=== PATIENT | female | born 1990 | race Caucasian/White ===

== ENCOUNTER 2021-12-12 08:03 | Emergency (ER) | payer OTHER, SELFPAY ==
[2021-12-12 08:13] VITALS: BP 133/65; PULSE 84; RESP 16; TEMP 37.3; O2SAT 99
--- NOTE | 2021-12-12 08:18 | ED.EAR ---
HPI - Ear Problem General Chief complaint: Ear Stated complaint: ear pain Time Seen by Provider: 12/12/21 08:16 Source: patient and RN notes reviewed Mode of arrival: ambulatory Limitations: no limitations History of Present Illness HPI Narrative: 31-year-old female presents concern for right ear pain. She reports ear pain is bilateral, however its worse on the right. She reports since Wednesday she has had nasal congestion, rhinorrhea, sinus pressure and pain. Reports she is taken Tylenol. She denies any drainage from the ear, hearing changes, fever, body aches, chills, sweats. Complaint: ear pain Related Data Allergies Allergy/AdvReac Type Severity Reaction Status Date / Time erythromycin base Allergy Mild Other Unverified 12/12/21 08:11 Penicillins Allergy Mild Other Unverified 12/12/21 08:11 yellow dye Allergy Unknown Other Unverified 12/12/21 08:11 Review of Systems Review of Systems: CONSTITUTIONAL: Denies malaise, chills, sweats, or fever. EYES: Denies visual changes, redness, or discharge. ENT: Reports rhinorrhea, congestion, sinus pain. Reports ear pain CARDIOVASCULAR: Denies chest pain, palpitations, or edema. RESPIRATORY: Denies cough. Denies dyspnea. GASTROINTESTINAL: Denies abdominal pain, nausea, vomiting, diarrhea SKIN: Denies rash or itching. MUSCULOSKELETAL: Denies myalgia. NEUROLOGIC: Denies headache. All systems reviewed & are unremarkable except as noted in HPI and below PMFSH Comments At time of signature, agree with nursing past medical, surgical, social and family history. There is no relevant family history pertinent to the presenting complaint Exam Narrative: GENERAL: Well-appearing, well-nourished, and in no acute distress. HEAD: Normocephalic EYES: PERRLA, conjunctivae clear ENT: Nares clear, turbinates edematous, clear discharge. Mucous membranes moist. Left TM pearly shelton with dull light reflex, right TM erythematous and bulging; no tragal tenderness. Oropharynx not erythematous without lesions. Tonsils not enlarged and without exudate, no drooling, no hoarseness, no trismus, uvula midline. NECK: Supple. No lymphadenopathy CHEST: Clear to auscultation, breath sounds equal. No wheezing, rhonchi, rales, or stridor. No respiratory distress, speaks in full sentences. HEART: Regular rate and rhythm. No murmur heard. SKIN: Warm, dry, no rash. NEURO: Alert and oriented x3. PSYCH: Normal mood and affect Course Course Emergency Course: Discussed antibiotic options with patient regarding allergies to penicillin and yellow dye. Appropriate antibiotic options either have yellow dye or penicillin based or related. Patient reports she does not know what her reaction to penicillin is, she was a child. She reports she has an intolerance to yellow dye, and usually only reacts when she has a lot of it for a long period of time. Patient is agreeable to doxycycline, which indicates that it may have yellow dye. We will call the pharmacy to discuss if there are other options without yellow dye. Patient is aware of diagnosis, understands and agrees to treatment plan. Anticipatory guidance given. Patient agrees to follow-up as directed and is aware of reasons to seek care at the emergency department. Portions of this record may have been created with voice recognition software Level of Care: Express Care Visit Vital Signs Vital signs: Vital Signs Temperature 99.2 F 12/12/21 08:13 Pulse Rate 84 12/12/21 08:13 Respiratory Rate 16 12/12/21 08:13 Blood Pressure 133/65 12/12/21 08:13 Pulse Oximetry 99 12/12/21 08:13 Temperature 99.2 F 12/12/21 08:13 Pulse Rate 84 12/12/21 08:13 Respiratory Rate 16 12/12/21 08:13 Blood Pressure 133/65 12/12/21 08:13 Pulse Oximetry 99 12/12/21 08:13 Reviewed. Medical Decision Making MDM Narrative Medical decision making narrative: Differential diagnosis considered: Mccrary virus, strep pharyngitis, allergic rhinitis, upper respiratory tract i
== END 2021-12-12 08:37 | disposition home or self-care (01) ==
PROVIDERS: Emergency Provider Nurse Practitioner
DX: H66.001 Acute suppurative otitis media without spontaneous rupture of ear drum, right ear (principal)
CPT/HCPCS: 99213; G0463

== ENCOUNTER 2021-12-16 08:05 | Emergency (ER) | payer OTHER, SELFPAY ==
--- NOTE | 2021-12-16 08:11 | ED.EAR ---
HPI - Ear Problem General Chief complaint: Ear Stated complaint: ear pain Time Seen by Provider: 12/16/21 08:10 Source: patient, RN notes reviewed and old records reviewed Mode of arrival: ambulatory Limitations: no limitations History of Present Illness HPI Narrative: 31-year-old female returns to the [facility] after being evaluated on Wednesday and diagnosed with an ear infection for continued pain and drainage from both her ears. Denies fevers. States that she was taking the antibiotic. Had taken Motrin and Tylenol for pain. Denies chest pain or abdominal pain. No nausea vomiting or diarrhea. MD Complaint: ear pain and ear discharge Location: bilateral Related Data Allergies Allergy/AdvReac Type Severity Reaction Status Date / Time erythromycin base Allergy Mild Other Verified 12/16/21 08:22 Penicillins Allergy Mild Other Verified 12/16/21 08:22 yellow dye Allergy Unknown Other Verified 12/16/21 08:22 Review of Systems Review of Systems: All systems reviewed & are unremarkable except as noted in HPI and below Constitutional: Constitutional: Reports no additional constitutional complaints, Denies chills and Denies fever(s) Eyes: Eyes: Reports no additional eye complaints ENT: Reports as per HPI, Denies change in voice, Denies dental pain, Denies vertigo, Denies dizziness, Reports ear discharge, Denies facial pain, Denies headache(s), Denies mouth pain, Denies neck pain, Denies nose pain and Denies throat swelling Comments: Ear pain Cardiovascular: Cardiovascular: Reports no additional cardiovascular complaints, Denies chest pain and Denies dyspnea Respiratory: Respiratory: Reports no additional respiratory complaints, Denies cough and Denies dyspnea Gastrointestinal: Gastrointestinal: Reports no additional gastrointestinal complaints, Denies abdominal pain, Denies nausea and Denies vomiting Musculoskeletal: Musculoskeletal: Reports no additional musculoskeletal complaints Integumentary/Breasts: Skin/Breast: Reports system reviewed and no additional complaints, except as docu Neurologic: Reports system reviewed and no additional complaints, except as documented, Denies vertigo and Denies dizziness Psychiatric: Psychiatric: Reports no additional psychiatric complaints Allergic/Immunologic: Allergic/Immunologic: Reports no additional allergic/immunologic complaints and Denies throat swelling PMFSH Past Medical History Medical History Patient denies medical problems Surgical History Surgical History (Updated 12/16/21 @ 11:32 by Tasneem English APRN) No pertinent past surgical history Social History Social History (Updated 12/16/21 @ 11:32 by Tasneem English APRN) Living arrangements: with family Gender identity (if verbalized by the patient): Female Comments At the time of my signature, I reviewed and agree with the nursing past medical, surgical, social, and family history. There is no relevant family history pertinent to the patient complaint. Exam Const: General: no acute distress and ill appearing acutely (mild) Nutritional Appearance: well nourished Orientation/consciousness: patient oriented x3 Limitations: no limitations HENMT: Head: normal to inspection Ears: external ears normal, mastoids normal, no periauricular adenopathy, Abnormal EAC present erythema bilateral and EAC tenderness bilateral and TM abnormal dull bilateral, with loss of landmarks bilateral and perforated with purulent discharge on the right and without discharge on the left; not erythematous General nose exam: Normal external nose present, Normal nasal mucous membranes and turbinates present and No nasal discharge present Face and sinus: normal facial exam Mouth: Yes Normal oral and palatal mucosa present Throat: posterior oropharynx normal, tonsils normal and uvula midline Eyes: Conjunctivae: conjunctivae normal Pupils: Equal, round and reactive pupils present Neck: Nec
[2021-12-16 08:13] VITALS: BP 111/68; PULSE 77; RESP 16; TEMP 37.2; O2SAT 99
== END 2021-12-16 08:35 | disposition home or self-care (01) ==
PROVIDERS: Emergency Provider Nurse Practitioner
DX: H72.91 Unspecified perforation of tympanic membrane, right ear (principal); H60.503 Unspecified acute noninfective otitis externa, bilateral
CPT/HCPCS: 99213; G0463

== ENCOUNTER 2022-05-04 18:21 | Emergency (ER) | payer OTHER, SELFPAY ==
[2022-05-04 18:52] VITALS: BP 114/77; PULSE 83; RESP 16; TEMP 36.7; O2SAT 100
--- NOTE | 2022-05-04 19:20 | ED.EAR ---
HPI - Ear Problem General Chief complaint: Ear Stated complaint: ear infection Time Seen by Provider: 05/04/22 19:20 Source: patient and RN notes reviewed Mode of arrival: ambulatory Limitations: no limitations History of Present Illness HPI Narrative: 31-year-old female presents to the [facility] with complaints of left ear pain for 2 days. Has had drainage. States a couple months ago she had a ruptured eardrum and had to see a specialist. Denies fevers. NO treatment [employer] Location: left ear Related Data Allergies Allergy/AdvReac Type Severity Reaction Status Date / Time erythromycin base Allergy Mild Other Verified 12/16/21 08:22 Penicillins Allergy Mild Other Verified 12/16/21 08:22 yellow dye Allergy Unknown Other Verified 12/16/21 08:22 Review of Systems Review of Systems: All systems reviewed & are unremarkable except as noted in HPI and below Constitutional: Constitutional: Reports no additional constitutional complaints, Denies chills and Denies fever(s) Eyes: Eyes: Reports no additional eye complaints ENT: Reports as per HPI (left ear pain with drainage. ) Cardiovascular: Cardiovascular: Reports no additional cardiovascular complaints Respiratory: Respiratory: Reports no additional respiratory complaints Gastrointestinal: Gastrointestinal: Reports no additional gastrointestinal complaints Musculoskeletal: Musculoskeletal: Reports no additional musculoskeletal complaints Integumentary/Breasts: Skin/Breast: Reports system reviewed and no additional complaints, except as docu Neurologic: Reports system reviewed and no additional complaints, except as documented Psychiatric: Psychiatric: Reports no additional psychiatric complaints Allergic/Immunologic: Allergic/Immunologic: Reports no additional allergic/immunologic complaints PMFSH Past Medical History Medical History Patient denies medical problems Surgical History Surgical History No pertinent past surgical history Social History Social History Gender identity (if verbalized by the patient): Female Comments At the time of my signature, I reviewed and agree with the nursing past medical, surgical, social, and family history. There is no relevant family history pertinent to the patient complaint. Exam Const: General: healthy appearing, no acute distress and alert Nutritional Appearance: well nourished Orientation/consciousness: patient oriented x3 Limitations: no limitations HENMT: Head: normal to inspection Ears: external ears normal, TM normal on the right, mastoids normal bilaterally, no periauricular adenopathy, Abnormal EAC present erythema on the left and edema on the left and unable to visualize TM General nose exam: Normal external nose present and Normal nares present Face and sinus: normal facial exam, sinuses nontender and face symmetric Mouth: Yes Normal oral and palatal mucosa present, Yes lip normal and Yes moist mucous membranes Throat: posterior oropharynx normal and uvula midline Other: Unable to visualized the left TM due to swelling. Eyes: General: appearance normal, both eyes and all related structures Pupils: Equal, round and reactive pupils present Neck: Neck: normal visual inspection, no lymphadenopathy and no meningeal signs Chest: Chest palpation & inspection: normal inspection of the chest Resp: Effort & Inspection: normal respiratory effort and no use of accessory muscles Auscultation: clear to auscultation bilaterally, no crackles, no rales, no rhonchi and no wheezes Cardio: Rate: regular rate Rhythm: regular rhythm Back/Spine/Pelvis: Cervical Spine: normal cervical lordosis Thoracic/Lumbar Spine: thoracic and lumbar spine normal to inspection Skin: General skin exam: normal color Rashes: no rashes Wounds: no wounds Neuro: General: patien
== END 2022-05-04 19:34 | disposition home or self-care (01) ==
PROVIDERS: Emergency Provider Nurse Practitioner
DX: H60.92 Unspecified otitis externa, left ear (principal)
CPT/HCPCS: 99213; G0463

== ENCOUNTER 2022-10-30 08:02 | Emergency (ER) | payer OTHER, SELFPAY ==
[2022-10-30 08:09] VITALS: BP 118/74; PULSE 91; RESP 14; TEMP 36.6; O2SAT 100
--- NOTE | 2022-10-30 08:20 | ED.URI ---
HPI - URI/Sore Throat General Chief Complaint: Upper Respiratory Infection Stated Complaint: sore throat Time Seen by Provider: 10/30/22 08:14 Source: patient Mode of arrival: ambulatory Limitations: no limitations History of Present Illness HPI Narrative: Patient presents today complaining of sore throat and bilateral ear pain since yesterday. Denies fever, cough, or any additional symptoms. She currently rates her pain 6/10 and has been taking Tylenol with mild relief. Reports several people at her work have recently been diagnosed with strep throat. Related Data Allergies Allergy/AdvReac Type Severity Reaction Status Date / Time erythromycin base Allergy Mild Other Verified 10/30/22 08:10 Penicillins Allergy Mild Other Verified 10/30/22 08:10 yellow dye Allergy Unknown Other Verified 10/30/22 08:10 Review of Systems Review of Systems: CONSTITUTIONAL: Denies body aches, fever, chills, or sweats. EYES: Denies visual changes, redness, or discharge. ENT: Denies rhinorrhea, congestion. + sore throat, bilateral ear pain CARDIOVASCULAR: Denies chest pain, palpitations, or edema. RESPIRATORY: Denies cough or dyspnea. GASTROINTESTINAL: Denies abdominal pain, nausea, vomiting, or diarrhea. GENITOURINARY: Denies dysuria or hematuria. SKIN: Denies rash, itching, or wounds. MUSCULOSKELETAL: Denies back pain, joint pain, or myalgia. NEUROLOGIC: Denies headache, numbness, tingling, or weakness. PSYCH: Denies depression or anxiety. PMFSH Past Medical History Medical History Patient denies medical problems Surgical History Surgical History No pertinent past surgical history Social History Social History Living arrangements: with family Gender identity (if verbalized by the patient): Female Comments At time of signature, I have reviewed and agree with nursing past medical, surgical, social and family history unless otherwise noted. Please see nursing chart for further information. There is no relevant family history pertinent to the presenting complaint Exam Narrative: GENERAL: Well-appearing, well-nourished, and in no acute distress. HEAD: Normocephalic, atraumatic. EYES: EOMI. No redness or drainage. Conjunctivae normal. ENT: Mucous membranes pink and moist. Nares clear. No rhinorrhea. TMs normal bilaterally. Throat erythematous without edema or exudate. Uvula midline. NECK: Normal AROM. Supple. No lymphadenopathy. CHEST: No respiratory distress. Clear to auscultation. HEART: Regular rate and rhythm. No murmur appreciated. EXTREMITIES: Normal range of motion. No edema. SKIN: Warm, dry, no rash. Capillary refill normal. Normal skin turgor. NEURO: No focal deficits. Alert and oriented x3. Gait steady. PSYCH: Normal affect. No signs of depression or anxiety. Course Course Level of Care: Express Care Visit Vital Signs Vital signs: Vital Signs Temperature 97.8 F 10/30/22 08:09 Pulse Rate 91 10/30/22 08:09 Respiratory Rate 14 10/30/22 08:09 Blood Pressure 118/74 10/30/22 08:09 Pulse Oximetry 100 10/30/22 08:09 Oxygen Delivery Room Air 10/30/22 08:09 Temperature 97.8 F 10/30/22 08:09 Pulse Rate 91 10/30/22 08:09 Respiratory Rate 14 10/30/22 08:09 Blood Pressure 118/74 10/30/22 08:09 Pulse Oximetry 100 10/30/22 08:09 Oxygen Delivery Room Air 10/30/22 08:09 Reviewed MDM - URI/Sore Throat MDM Narrative Medical decision making narrative: Rapid strep is positive. Penicillin causes, ?upset stomach. ? Will prescribe Keflex. Anticipatory guidance given, including eating when taking antibiotics. Differential Diagnosis Differential diagnosis: Likely upper respiratory infection, otitis media, viral infection, pharyngitis and other (Strep throat) Lab Data Attestation: I reviewed the pat
== END 2022-10-30 08:51 | disposition home or self-care (01) ==
PROVIDERS: Emergency Provider Nurse Practitioner
DX: J02.0 Streptococcal pharyngitis (principal)
CPT/HCPCS: 87880; 99213; G0463